=== PATIENT | female | born 1985 | race Caucasian/White ===

== ENCOUNTER 2018-07-05 11:37 | Inpatient (IN) | payer MEDICAID ==
[~2018-07-05 11:37] MED LIST: LIDOCAINE 2% (SDV) 5 ML INJ; SEVOFLURANE 15 MIN
[2018-07-05] MEDS ORDERED: morphine 10 MG INJ (12:35)
[2018-07-05] MEDS ORDERED: PROPOFOL 20 ML (12:43)
[2018-07-05] MEDS ORDERED: ROCURONIUM 50 MG INJ (12:43)
[2018-07-05] MEDS ORDERED: SUCCINYLCHOLINE CHLORIDE 100 MG/5 ML SYG IV (12:44)
[2018-07-05] MEDS ORDERED: DEXAMETHASONE 4 MG/ML 1 ML INJ (12:44)
[2018-07-05] MEDS ORDERED: OXYTOCIN 30 UNITS/LR 500 ML IV ×3 (12:44→18:30)
[2018-07-05] MEDS ORDERED: ONDANSETRON 4 MG INJ (12:46)
[2018-07-05] MEDS ORDERED: SUGAMMADEX SODIUM 200 MG/2 ML VIAL IV (12:50)
[2018-07-05] MEDS ORDERED: LACTATED RINGER'S 1,000 ML IV (13:15)
[2018-07-05 13:23] LABS: ADD MAN DIFF? NO
[2018-07-05 13:26] LABS: BASOPHIL # 0.1 10^3/ul (0.0-0.1); BASOPHILS % 0.5 % (0.0-2.0); EOSINOPHILS # 0.1 10^3/ul (0.0-0.5); EOSINOPHILS % 0.9 % (0.0-7.0); HEMATOCRIT 37.4 % (37.0-47.0); HEMOGLOBIN 12.5 g/dl (12.0-16.0); LYMPHOCYTES # 2.9 10^3/ul (0.8-2.9); LYMPHOCYTES % 19.3 % (15.0-51.0); MEAN CORPUSCULAR HEMOGLOBIN 31.1 pg (29.0-33.0); MEAN CORPUSCULAR HGB CONC 33.4 g/dl (32.0-37.0); MONOCYTE # 0.9 10^3/ul (0.3-0.9); MONOCYTES % 5.7 % (0.0-11.0); NEUTROPHIL # 10.7 10^3/ul (1.6-7.5); NEUTROPHILS % 71.8 % (39.0-77.0); NUCLEATED RED BLOOD CELLS # 0.3 10^3/ul (0.0-0.0); NUCLEATED RED BLOOD CELLS% 2.3 /100WBC (0.0-0.0); PLATELET COUNT 293 10^3/UL (140-415); RED BLOOD COUNT 4.02 10^6/ul (4.20-5.40); RED CELL DISTRIBUTION WIDTH 13.8 % (11.5-14.5)
[2018-07-05 13:26] LABS: WHITE BLOOD COUNT 14.9 10^3/ul (4.8-10.8)
[2018-07-05] MEDS ORDERED: MEPERIDINE 25 MG INJ IV (13:30)
[2018-07-05] MEDS ORDERED: EPHEDrine SULFATE 50 MG/5 ML SYG IV (13:30)
[2018-07-05] MEDS ORDERED: FENTAnyl 50 MCG/ML VIAL IV ×3 (13:30)
[2018-07-05] MEDS ORDERED: HYDROmorphONE 1 MG/5 ML IV SYRINGE IV ×3 (13:30)
[2018-07-05] MEDS ORDERED: LABETALOL HCL 20MG INJ IV (13:30)
[2018-07-05] MEDS ORDERED: MIDAZOLAM 1 MG/ML 2 ML INJ IV (13:30)
[2018-07-05] MEDS ORDERED: METOCLOPRAMIDE 10 MG INJ IV (13:30)
[2018-07-05] MEDS ORDERED: METHYLERGONOVINE 0.2 MG INJ IM ×2 (13:30→18:30)
[2018-07-05] MEDS ORDERED: ONDANSETRON 4 MG INJ IV ×2 (13:30→16:00)
[2018-07-05] MEDS ORDERED: CARBOPROST 250 MCG INJ IM ×2 (13:30→18:30)
[2018-07-05] MEDS ORDERED: hydrALAzine 20 MG INJ IV (13:30)
[2018-07-05] MEDS ORDERED: MISOPROSTOL 200 MCG TAB PR ×2 (13:30→18:30)
[2018-07-05] MEDS ORDERED: DIPHENHYDRAMINE 50 MG INJ IV ×2 (13:30→16:00)
[2018-07-05 13:32] LABS: INR 0.91; PROTIME 12.4 Sec (11.9-14.9)
[2018-07-05 13:33] LABS: PARTIAL THROMBOPLASTIN TIME 26.9 Sec (23.0-35.0)
[2018-07-05] MEDS: KETOROLAC 30 MG INJ IV (13:37)
[2018-07-05] MEDS: OXYTOCIN 30 UNITS/LR 500 ML IV ×2 (13:38→18:57)
[2018-07-05 14:05] LABS: HEPATITIS B SURFACE ANTIGEN NEGATIVE (NEGATIVE)
[2018-07-05] MEDS: CEFAZOLIN 2 GM/50 ML (PMX) 50 ML IVPB (15:41)
[2018-07-05] MEDS ORDERED: ZOLPIDEM 5 MG TAB PO (16:00)
[2018-07-05] MEDS ORDERED: HYDROmorphONE 0.5 MG/0.5 ML SYG IV ×2 (16:00)
[2018-07-05] MEDS ORDERED: KETOROLAC 30 MG INJ IV (16:00)
[2018-07-05] MEDS ORDERED: NALOXONE (0.4 MG/ML) INJ IV (16:00)
[2018-07-05] MEDS ORDERED: OXYCODONE/ACETAMINOPHEN (5/325) TAB PO ×3 (16:00→18:30)
[2018-07-05 16:04] LABS: RAPID PLASMA REAGIN NONREACTIVE (NR)
[2018-07-05] MEDS: HYDROmorphONE 0.2 MG/ML PCA IV ×2 (17:11→23:38)
[2018-07-05] MEDS ORDERED: NACL 0.9% 3 ML SYG IV (18:30)
[2018-07-05] MEDS ORDERED: CEFAZOLIN 2 GM/50 ML (PMX) 50 ML IVPB (18:30)
[2018-07-05] MEDS: SENNA/DOCUSATE NA (8.6MG/50MG) TAB PO (21:00)
[2018-07-06] MEDS: CEFAZOLIN 2 GM/50 ML (PMX) 50 ML IVPB ×2 (00:32→09:34)
[2018-07-06] MEDS: LACTATED RINGER'S 1,000 ML IV ×2 (05:44→13:15)
[2018-07-06 08:56] LABS: ADD MAN DIFF? NO
[2018-07-06 09:00] LABS: WHITE BLOOD COUNT 24.6 10^3/ul (4.8-10.8)
[2018-07-06 09:00] LABS: ABNORMAL IP MESSAGE 1; BASOPHIL # 0.1 10^3/ul (0.0-0.1); BASOPHILS % 0.4 % (0.0-2.0); HEMATOCRIT 28.3 % (37.0-47.0); HEMOGLOBIN 9.6 g/dl (12.0-16.0); LYMPHOCYTES # 3.2 10^3/ul (0.8-2.9); LYMPHOCYTES % 12.9 % (15.0-51.0); MEAN CORPUSCULAR HGB CONC 33.9 g/dl (32.0-37.0); MEAN CORPUSCULAR VOLUME 94.3 fl (82.0-101.0); MEAN PLATELET VOLUME 10.4 fl (7.4-10.4); MONOCYTE # 1.7 10^3/ul (0.3-0.9); MONOCYTES % 6.8 % (0.0-11.0); NEUTROPHIL # 19.4 10^3/ul (1.6-7.5); NEUTROPHILS % 78.8 % (39.0-77.0); NUCLEATED RED BLOOD CELLS # 0.2 10^3/ul (0.0-0.0); NUCLEATED RED BLOOD CELLS% 0.6 /100WBC (0.0-0.0); PLATELET COUNT 248 10^3/UL (140-415); RED CELL DISTRIBUTION WIDTH 13.7 % (11.5-14.5)
[2018-07-06] MEDS: SENNA/DOCUSATE NA (8.6MG/50MG) TAB PO ×2 (09:00→21:47)
[2018-07-06 09:02] LABS: POSITIVE DIFF @See below
[2018-07-06 09:42] LABS: AADO2 Cord Arterial 43.9 mmHg; Arterial Cord Blood pCO2 42.8 mmHG (25-50); CBA Base Excess -7.7 mmol/L; CBA COHb 1.3 %; CBA Oxygen Sat 90.7 mmHG; CBA Total Hemglobin 17.6 g/dl; Cord Blood Arterial pO2 54.6 mmHG (15.0-45.0); Fraction OxyHgb Cord Arterial 88.7 %; MODE VENT - AC; MetHgb Cord Arterial 0.9 %; Sample Type CBA; Site CORD
[2018-07-06] MEDS: LIDOCAINE/MYLANTA 40 ML BTL PO (12:37)
[2018-07-06] MEDS: IBUPROFEN 600 MG TAB PO ×3 (12:37→23:57)
[2018-07-07] MEDS: PIPER-TAZO 3.375 GM IV (PMX) 100 ML IVPB ×3 (01:56→17:53)
[2018-07-07] MEDS: IBUPROFEN 600 MG TAB PO ×3 (05:44→17:08)
[2018-07-07] MEDS: SENNA/DOCUSATE NA (8.6MG/50MG) TAB PO ×2 (10:32→20:55)
[2018-07-07 15:20] LABS: ADD MAN DIFF? NO
[2018-07-07 15:21] LABS: WHITE BLOOD COUNT 15.3 10^3/ul (4.8-10.8)
[2018-07-07 15:21] LABS: BASOPHIL # 0.1 10^3/ul (0.0-0.1); BASOPHILS % 0.3 % (0.0-2.0); EOSINOPHILS # 0.2 10^3/ul (0.0-0.5); LYMPHOCYTES # 2.5 10^3/ul (0.8-2.9); LYMPHOCYTES % 16.1 % (15.0-51.0); MEAN CORPUSCULAR HEMOGLOBIN 31.7 pg (29.0-33.0); MEAN CORPUSCULAR HGB CONC 33.3 g/dl (32.0-37.0); MEAN CORPUSCULAR VOLUME 95.2 fl (82.0-101.0); MEAN PLATELET VOLUME 9.6 fl (7.4-10.4); MONOCYTE # 0.8 10^3/ul (0.3-0.9); MONOCYTES % 5.5 % (0.0-11.0); NEUTROPHIL # 11.5 10^3/ul (1.6-7.5); NEUTROPHILS % 75.5 % (39.0-77.0); NUCLEATED RED BLOOD CELLS # 0.2 10^3/ul (0.0-0.0); NUCLEATED RED BLOOD CELLS% 1.1 /100WBC (0.0-0.0); PLATELET COUNT 286 10^3/UL (140-415); RED BLOOD COUNT 3.15 10^6/ul (4.20-5.40); RED CELL DISTRIBUTION WIDTH 14.1 % (11.5-14.5)
[2018-07-07 18:21] LABS: ADD UMIC YES; UR ASCORBIC ACID NEGATIVE (NEGATIVE); UR BACTERIA FEW /HPF (NONE SEEN); UR BILIRUBIN (Dip) NEGATIVE (NEGATIVE); UR BLOOD (Dip) 3+ mg/dL (NEGATIVE); UR CLARITY CLOUDY (CLEAR); UR COLOR RED (YELLOW); UR GLUCOSE (Dip) NEGATIVE (NEGATIVE); UR KETONES (Dip) NEGATIVE (NEGATIVE); UR LEUKOCYTE ESTERASE (Dip) 2+ Leu/ul (NEGATIVE); UR NITRITE (Dip) NEGATIVE (NEGATIVE); UR RBC > 182 /HPF (0-5); UR SPECIFIC GRAVITY (Dip) 1.005 (1.003-1.030); UR SQUAMOUS EPITHELIAL CELL MODERATE /HPF (FEW); UR TOTAL PROTEIN (Dip) 2+ mg/dl (NEGATIVE); UR UROBILINOGEN (Dip) NEGATIVE (NEGATIVE); UR WBC 143 /HPF (0-5)
[2018-07-08] MEDS: PIPER-TAZO 3.375 GM IV (PMX) 100 ML IVPB ×2 (02:06→10:31)
[2018-07-08] MEDS: IBUPROFEN 600 MG TAB PO ×4 (02:13→18:16)
[2018-07-08] MEDS: DIPHTH/TET/ACEL PERTUSS (ADULT) 0.5 ML VIAL IM* (09:00)
[2018-07-08] MEDS: SENNA/DOCUSATE NA (8.6MG/50MG) TAB PO (10:27)
[2018-07-08 17:43] LABS: ADD MAN DIFF? NO
[2018-07-08 17:44] LABS: BASOPHIL # 0.1 10^3/ul (0.0-0.1); BASOPHILS % 0.5 % (0.0-2.0); EOSINOPHILS # 0.3 10^3/ul (0.0-0.5); EOSINOPHILS % 2.7 % (0.0-7.0); HEMATOCRIT 30.1 % (37.0-47.0); HEMOGLOBIN 9.9 g/dl (12.0-16.0); LYMPHOCYTES # 2.3 10^3/ul (0.8-2.9); LYMPHOCYTES % 18.3 % (15.0-51.0); MEAN CORPUSCULAR HEMOGLOBIN 31.1 pg (29.0-33.0); MEAN CORPUSCULAR HGB CONC 32.9 g/dl (32.0-37.0); MEAN CORPUSCULAR VOLUME 94.7 fl (82.0-101.0); MEAN PLATELET VOLUME 9.6 fl (7.4-10.4); MONOCYTE # 0.7 10^3/ul (0.3-0.9); MONOCYTES % 5.5 % (0.0-11.0); NEUTROPHIL # 9.1 10^3/ul (1.6-7.5); NEUTROPHILS % 71.2 % (39.0-77.0); NUCLEATED RED BLOOD CELLS # 0.3 10^3/ul (0.0-0.0); NUCLEATED RED BLOOD CELLS% 2.4 /100WBC (0.0-0.0); PLATELET COUNT 325 10^3/UL (140-415); RED BLOOD COUNT 3.18 10^6/ul (4.20-5.40); RED CELL DISTRIBUTION WIDTH 13.8 % (11.5-14.5)
[2018-07-08 17:44] LABS: WHITE BLOOD COUNT 12.7 10^3/ul (4.8-10.8)
== END 2018-07-08 20:10 | disposition home or self-care (01) | DRG 788 ==
LOC: OBT 11:37 → L-D 11:37 → OBT 12:08 → L-D 11:53 → PP1 18:20
PROVIDERS: Obstetrics & Gynecology
PROC: 10D00Z1 Extraction of Products of Conception, Low, Open Approach (ICD-10-PCS; principal; 2018-07-05)
PROC: 0U590ZZ Destruction of Uterus, Open Approach (ICD-10-PCS; 2018-07-05)
DX: O76 Abnormality in fetal heart rate and rhythm complicating labor and delivery (principal); O77.0 Labor and delivery complicated by meconium in amniotic fluid; O99.89 Other specified diseases and conditions complicating pregnancy, childbirth and the puerperium; N80.0 Endometriosis of uterus; Z3A.39 39 weeks gestation of pregnancy; Z37.0 Single live birth
CPT/HCPCS: 36600; 81001; 82803; 85025; 85610; 85730; 86592; 86850; 86900; 86901; 87340; 88307; 99464

== ENCOUNTER 2018-08-16 13:28 | Emergency (ER) | payer MEDICAID | END 2018-08-16 16:19 | disposition home or self-care (01) | LOC: FTE 16:19 | DX: G89.18 Other acute postprocedural pain (principal) | CPT/HCPCS: 76536; 99284-25 ==